=== PATIENT | female | born 1945 | race Caucasian/White ===

== ENCOUNTER 2022-01-15 14:37 | Emergency (ER) | payer MEDICARE | END 2022-01-15 15:38 | disposition home or self-care (01) | LOC: JP.ED 14:37 | DX: T70.0XXA Otitic barotrauma, initial encounter (principal); J40 Bronchitis, not specified as acute or chronic; E78.00 Pure hypercholesterolemia, unspecified; Z79.899 Other long term (current) drug therapy | CPT/HCPCS: 99282; 99283 ==